=== PATIENT | female | born 1970 | race Caucasian/White ===

== ENCOUNTER 2019-12-23 08:29 | Emergency (ER) | payer OTHER, SELFPAY ==
[2019-12-23 08:38] VITALS: BP 140/84; PULSE 66; RESP 16; TEMP 36.9; O2SAT 100
--- NOTE | 2019-12-23 09:51 | ED.GENADULT ---
HPI - General Adult General Chief complaint: Extremity Injury, Lower Stated complaint: left knee pain Time Seen by Provider: 12/23/19 09:07 Source: patient and RN notes reviewed Mode of arrival: ambulatory Limitations: no limitations History of Present Illness HPI narrative: Patient presents today complaining of left knee pain x2 to 3 years, worse over the past 1 week. Denies any recent injury or trauma. States when she has flares in her pain she normally gets relief when changing her boot insoles. She also got a [id number] knee brace, but neither of these have provided relief recently. She is currently pain-free, but states the pain was 10/10 yesterday. She has tried no [id number] medication for symptoms prior to arrival. Denies numbness or tingling in the leg or foot. MD complaint: Left knee pain Related Data Home Medications Medication Instructions Recorded Confirmed No Home Medications 12/23/19 12/23/19 Allergies Allergy/AdvReac Type Severity Reaction Status Date / Time No Known Allergies Allergy Verified 12/23/19 09:05 Review of Systems Review of Systems: Narrative: CONSTITUTIONAL: Denies body aches, fever, chills, or sweats. EYES: Denies visual changes, redness, or discharge. ENT: Denies rhinorrhea, congestion, sore throat, or otalgia. CARDIOVASCULAR: Denies chest pain, palpitations, or edema. RESPIRATORY: Denies cough or dyspnea. GASTROINTESTINAL: Denies abdominal pain, nausea, vomiting, or diarrhea. GENITOURINARY: Denies dysuria or hematuria. SKIN: Denies rash, itching, or wounds. MUSCULOSKELETAL: Denies back pain, or myalgia. + Left knee pain NEUROLOGIC: Denies headache, numbness, tingling, or weakness. PSYCH: Denies depression or anxiety. PMFSH Comments At time of signature, I have reviewed and agree with nursing past medical, surgical, social and family history unless otherwise noted. Please see nursing chart for further information. There is no relevant family history pertinent to the presenting complaint Exam Narrative: Exam Narrative: GENERAL: Well-appearing, well-nourished, and in no acute distress. HEAD: Normocephalic, atraumatic. EYES: EOMI. No redness or drainage. Conjunctivae normal. ENT: Mucous membranes pink and moist. NECK: Normal AROM. CHEST: No respiratory distress. EXTREMITIES: Left knee: Patient localizes pain to the posterior knee, but pain cannot be elicited with palpation or range of motion. No edema, ecchymosis, or erythema noted. Distal sensation intact. Capillary refill normal. Pedal pulse normal. No pain with walking. All other extremities grossly normal. SKIN: Warm, dry, no rash. Capillary refill normal. Normal skin turgor. NEURO: No focal deficits. Alert and oriented x3. Gait steady. PSYCH: Normal affect. No signs of depression or anxiety. Course Vital Signs Vital signs: Vital Signs Temperature 98.5 F 12/23/19 08:38 Pulse Rate 66 12/23/19 08:38 Respiratory Rate 16 12/23/19 08:38 Blood Pressure 140/84 12/23/19 08:38 Pulse Oximetry 100 12/23/19 08:38 Temperature 98.5 F 12/23/19 08:38 Pulse Rate 66 12/23/19 08:38 Respiratory Rate 16 12/23/19 08:38 Blood Pressure 140/84 12/23/19 08:38 Pulse Oximetry 100 12/23/19 08:38 Reviewed. Pt has been instructed to follow up with her PCP regarding her elevated blood pressure today. Medical Decision Making Differential Diagnosis Differential Diagnosis: Ligamental injury, osteoarthritis, meniscus injury, Leon's cyst, knee sprain Vital Signs Vital Signs: Vital Signs Temperature 98.5 F 12/23/19 08:38 Pulse Rate 66 12/23/19 08:38 Respiratory Rate 16 12/23/19 08:38 Blood Pressure 140/84 12/23/19 08:38 Pulse Oximetry 100 12/23/19 08:38 Temperature 98.5 F 12/23/19 08:38 Pulse Rate 66 12/23/19 08:38 Respiratory Rate 16 12/23/19 08:38 Blood Pressure 140/84 12/23/19 08:38 Pulse Oximetry 100 12/23/19 08:38 Critical Care Time C
== END 2019-12-23 10:13 | disposition home or self-care (01) ==
PROVIDERS: Emergency Provider Nurse Practitioner
DX: M25.562 Pain in left knee (principal)
CPT/HCPCS: 99203; G0463